=== PATIENT | male | born 1945 | race Two or more races ===

== ENCOUNTER 2017-05-08 08:18 | Outpatient (CLI) | payer OTHER | END 2017-05-08 08:28 | disposition home or self-care (01) | LOC: TOM 08:18 | DX: D63.8 Anemia in other chronic diseases classified elsewhere (principal) ==

== ENCOUNTER → 2017-05-11 09:28 | Outpatient (CLI) | payer OTHER | END | disposition home or self-care (01) | LOC: LAB 09:28 | DX: D63.8 Anemia in other chronic diseases classified elsewhere (principal) ==

== ENCOUNTER 2017-05-25 08:30 | Outpatient (CLI) | payer OTHER | END 2017-05-25 08:42 | disposition home or self-care (01) | LOC: LAB 08:30 | DX: C18.0 Malignant neoplasm of cecum (principal); R59.0 Localized enlarged lymph nodes; D50.9 Iron deficiency anemia, unspecified; K40.90 Unilateral inguinal hernia, without obstruction or gangrene, not specified as recurrent ==

== ENCOUNTER → 2017-05-25 | Outpatient (CLI) | payer OTHER | END | disposition home or self-care (01) | LOC: RAD 10:32 | DX: C18.0 Malignant neoplasm of cecum (principal); R59.0 Localized enlarged lymph nodes; D50.9 Iron deficiency anemia, unspecified; K40.90 Unilateral inguinal hernia, without obstruction or gangrene, not specified as recurrent ==

== ENCOUNTER 2017-05-28 13:59 | Inpatient (IN) | payer OTHER ==
[~2017-05-28] VITALS: Ht 177.8 cm; Wt 72.6 kg
[2017-06-06] MEDS ORDERED: INTESTINEX680 M1 PO (09:21)
[2017-06-06] MEDS ORDERED: MIRALAX17 GM PO (09:21)
[2017-06-06] MEDS ORDERED: PERCOCET 5-3251 EACH PO (09:21)
== END 2017-06-06 13:04 | disposition home or self-care (01) | DRG 331 ==
LOC: SURG 13:59
PROVIDERS: Surgery
PROC: 30233N1 Transfusion of Nonautologous Red Blood Cells into Peripheral Vein, Percutaneous Approach (ICD-10-PCS; 2017-05-28)
PROC: 0DBL8ZX Excision of Transverse Colon, Via Natural or Artificial Opening Endoscopic, Diagnostic (ICD-10-PCS; 2017-05-29)
PROC: 0DBN8ZX Excision of Sigmoid Colon, Via Natural or Artificial Opening Endoscopic, Diagnostic (ICD-10-PCS; 2017-05-29)
PROC: 0DBK8ZX Excision of Ascending Colon, Via Natural or Artificial Opening Endoscopic, Diagnostic (ICD-10-PCS; 2017-05-29)
PROC: B246ZZZ Ultrasonography of Right and Left Heart (ICD-10-PCS; 2017-05-30)
PROC: 07TC4ZZ Resection of Pelvis Lymphatic, Percutaneous Endoscopic Approach (ICD-10-PCS; 2017-06-01)
PROC: 0DBU4ZZ Excision of Omentum, Percutaneous Endoscopic Approach (ICD-10-PCS; 2017-06-01)
PROC: 0DTF4ZZ Resection of Right Large Intestine, Percutaneous Endoscopic Approach (ICD-10-PCS; principal; 2017-06-01 16:15)
DX: C18.0 Malignant neoplasm of cecum (principal); D50.0 Iron deficiency anemia secondary to blood loss (chronic); R59.0 Localized enlarged lymph nodes; D12.3 Benign neoplasm of transverse colon; D12.5 Benign neoplasm of sigmoid colon